=== PATIENT | female | born 2005 | race Caucasian/White ===

== ENCOUNTER → 2023-03-10 | Outpatient (CLI) | payer SELFPAY ==
[2023-03-10 13:22] VITALS: BP 122/80; PULSE 66; RESP 16; TEMP 98.3
--- NOTE | 2023-03-10 14:07 | P.HPOB ---
History of Present Illness H&P Date: 03/10/23 Chief Complaint: The patient is here for her routine gynecologic exam. This is a 17-year-old G0 with an LMP of 03/03/2023. The patient has been on oral contraceptions for 2-1/2 years. She initially started them because of menstrual cramps and heavy flow. She states they were helpful, but she seems to be having more cramps even while on Loestrin 1-20. She is requesting to try a different type of control pill. She is otherwise without complaints. She does not plan on attempting in the upcoming year. Review of Systems The patient's weight has been stable over the last year. She denies respiratory, cardiac, or G.I. problems. 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 History of Any Multi-Drug Resistant Organisms: None Reported Past Surgical History: No Surgical Hx Reported Past Psychological History: Anxiety, Depression (She denies current depression without medication.) Additional Psychological History / Comment(s): Briefly used medication for depression and anxiety around age 14. She has done well without medication recently. Smoking Status: Current some day smoker, Vaper Past Drug Use History: Marijuana Additional Drug Use History / Comment(s): Vapes marijuana. Additional History: She is single and has been with her current boyfriend since 2021. She has had 2 partners in her lifetime. 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 - Past Family History Mother Family Medical History: No Reported History Additional Family Medical History / Comment(s): Maternal grandfather had some type of cancer. Father Additional Family Medical History / Comment(s): from ALS. Paternal grandmother had diabetes. Medications and Allergies Home Medications Medication Instructions Recorded Confirmed Type norethindrone ac-eth estradioL 1 tab PO DAILY 03/10/23 03/10/23 History [Loestrin 21 1-20 Tablet] Allergies Allergy/AdvReac Type Severity Reaction Status Date / Time No Known Allergies Allergy Unverified 03/10/23 13:18 Exam Vital Signs Temp Pulse Resp BP Pulse Ox 03/10/23 13:16 98.3 F 66 16 122/80 100 Intake and Output 03/09/23 03/10/23 03/10/23 22:59 06:59 14:59 Other: Weight 77.111 kg Height 5 feet 4-1/2 inches, weight 170 pounds, BMI 28.7. This is a well-developed well-nourished white female who is alert and oriented times 3 in no acute distress. HEENT: Within normal limits. She does have a nasal piercing. NECK: Supple without mass or thyromegaly. CHEST AND LUNGS: Clear to auscultation. HEART: Regular rate and rhythm. BREASTS: Are without mass or discharge. AXILLARY EXAM: Negative for adenopathy. BACK: Negative for CVA tenderness. ABDOMEN: Soft, nontender, without palpable masses. PELVIC EXAM: Normal external genitalia. Cervix and vagina appear normal. There is a small amount of creamy slightly yellow discharge. She did have sexual intercourse yesterday. There is no cervical motion tenderness. There is no evidence of prolapse. The uterus is midposition, nongravid size and nontender. There are no palpable adnexal masses or tenderness. RECTAL EXAM: Deferred. EXTREMITIES: Nontender. IMPRESSION: 1. 17-year-old female with history of dysmenorrhea and hypermenorrhea improved with oral contraception. 2. Slight worsening of dysmenorrhea despite oral contraception. The patient is requesting a different control pill. 3. Slight vaginal discharge. Differential diagnosis will include vaginal infe ction, physiologic discharge, and post coital semen related discharge. PLAN: 1. Pap smear will be deferred until age 19. 2. Self breast awareness was discussed with the patient. We have also disc ussed symptoms associated with inflammatory breast cancer. 3. GC and chlamydia testing was obtained from the cervix. 4. Affirm vaginitis panel was obtained from the vagina. 5. We have had a long discussion regarding oral contraception including possible side effects as well as possible risks including blood clots. Blood clots could be in the form of a DVT, PE, heart attack, and stroke. She will contact complete her current pack of pills. She will start Ortho Tri-Cyclen when she was supposed to start a new pack of pills. The electronic prescription for Ortho Tri-Cyclen will be sent to [facility] pharmacy in [place]. 6. We have discussed how there are risks to vaping. There can be potential lung damage with this. She understands this. 7. STD prevention was discussed. I have stressed the importance of limiting sexual partners and she is to consider condom use for STD prevention. 8. Preconception planning was also discussed if she ever decides to try to attempt . Have stressed the importance of keeping a menstrual calendar and taking a daily multivitamin with folic acid. 9. She was advised to return in one year for her annual well woman exam.
== END ==
LOC: WWCWWP 13:06
PROVIDERS: ATTEND Obstetrics & Gynecology
DX: N94.6 Dysmenorrhea, unspecified (principal); N92.0 Excessive and frequent menstruation with regular cycle; Z98.890 Other specified postprocedural states; F17.200 Nicotine dependence, unspecified, uncomplicated

== ENCOUNTER → 2024-08-02 | Outpatient (CLI) | payer SELFPAY ==
[2024-08-02 11:28] VITALS: BP 127/84; PULSE 80; RESP 16; TEMP 98.2
--- NOTE | 2024-08-02 11:51 | P.HPOB ---
History of Present Illness H&P Date: 08/02/24 Chief Complaint: Patient is here for her routine gynecologic exam. This is a 18-year-old G0 with an LMP of 07/21/2024. Patient states she is doing well on oral contraception. She does not plan on attempting in the upcoming year. She is without gynecologic complaints. She states her menstrual periods continue to do better on oral contraception. Review of Systems The patient has gained 31 pounds over the last year. She states she tends to stress eat and has been under more stress following the loss of a relative. She denies respiratory, cardiac, or G.I. problems. 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 History of Any Multi-Drug Resistant Organisms: None Reported Past Surgical History: No Surgical Hx Reported Past Psychological History: Anxiety, Depression Additional Psychological History / Comment(s): Briefly used medication for depression and anxiety around age 14. She has done well without medication recently. Smoking Status: Former smoker (Only vapes.), Vaper (About 6000 puffs every 2 weeks) Past Drug Use History: Marijuana (No longer smokes marijuana.) Additional Drug Use History / Comment(s): Vapes marijuana. Additional History: Quit using marijuana in October 2023. - Past Family History Mother Family Medical History: No Reported History Additional Family Medical History / Comment(s): Maternal grandfather had some type of cancer. Father Additional Family Medical History / Comment(s): from ALS. Paternal grandmother had diabetes. Medications and Allergies Home Medications Medication Instructions Recorded Confirmed Type norgestimate-ethinyl estradioL 1 each PO DAILY #84 tablet 03/10/23 Rx [Tri-Sprintec Tablet] Allergies Allergy/AdvReac Type Severity Reaction Status Date / Time No Known Allergies Allergy Unverified 08/02/24 11:25 Exam Vital Signs Temp Pulse Resp BP Pulse Ox 08/02/24 11:26 98.2 F 80 16 127/84 100 Intake and Output 08/01/24 08/02/24 08/02/24 22:59 06:59 14:59 Other: Weight 91.172 kg Height 5 feet 4 inches, weight 201 pounds, BMI 34.5. This is a well-developed well-nourished white female who is alert and oriented times 3 in no acute distress. HEENT: Within normal limits. NECK: Supple without mass or thyromegaly. CHEST AND LUNGS: Clear to auscultation. HEART: Regular rate and rhythm. BREASTS: Are without mass or discharge. AXILLARY EXAM: Negative for adenopathy. BACK: Negative for CVA tenderness. ABDOMEN: Soft, nontender, without palpable masses. PELVIC EXAM: Normal external genitalia. Cervix and vagina appear normal. There is no unusual discharge. There is no evidence of prolapse. There is no cervical motion tenderness. The uterus is midposition, nongravid size and nontender. There are no palpable adnexal masses or tenderness. RECTAL EXAM: Deferred. EXTREMITIES: Nontender. IMPRESSION: 1. 26-year-old female doing well on oral contraception, with normal gynecologic exam. 2. History of dysmenorrhea and hypermenorrhea improved with oral contraception. PLAN: 1. Pap smear will be deferred until age 19. 2. GC and Chlamydia screening was obtained from the cervix. 3. She will continue to use condoms in addition to oral contraception. The electronic prescription for Tri-Sprintec will be sent to [facility] pharmacy. 4. Weight control was discussed. I have stressed the importance of good nutrition, regular meals, adequate fiber, and regular exercise. 5. STD prevention was discussed. I stressed the importance of limiting sexual partners and continuing to use condoms. 6. I recommended that she try to quit vaping. We have discussed some risks of vaping. She states she will be trying to quit in the upcoming year. 7. She was advised to return in one year for her annual well woman exam.
== END ==
LOC: WWCWWP 11:01
PROVIDERS: ATTEND Obstetrics & Gynecology
DX: Z01.419 Encounter for gynecological examination (general) (routine) without abnormal findings (principal); Z87.891 Personal history of nicotine dependence; Z87.42 Personal history of other diseases of the female genital tract

== ENCOUNTER 2025-04-18 21:44 | Emergency (ER) | payer OTHER ==
--- NOTE | 2025-04-19 00:07 | ED ---
General Adult HPI - General Chief complaint: Extremity Injury, Lower Stated complaint: R Foot Injury Time Seen by Provider: 04/18/25 22:19 Source: patient, RN notes reviewed Mode of arrival: ambulatory Limitations: no limitations - History of Present Illness Initial comments: 19-year-old female presents to the emergency department for evaluation of foot pain. Patient reports that she injured her right foot when she fell almost 2 weeks ago. She has been walking on it but it has been painful for her. She states that she thought it would get better but has not improved and she is worried that it is broken. She denies any numbness or tingling. - Related Data Previous Rx's Medication Instructions Recorded norgestimate-ethinyl estradioL 1 each PO DAILY #84 tablet 08/02/24 [Tri-Sprintec Tablet] Allergies Allergy/AdvReac Type Severity Reaction Status Date / Time No Known Allergies Allergy Verified 04/18/25 21:51 Review of Systems ROS Statement: Those systems with pertinent positive or pertinent negative responses have been documented in the HPI. ROS Other: All systems not noted in ROS Statement are negative. 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 History of Any Multi-Drug Resistant Organisms: None Reported Past Surgical History: No Surgical Hx Reported Past Psychological History: Anxiety, Depression Smoking Status: Vaper Past Alcohol Use History: Occasional Past Drug Use History: Marijuana - Past Family History Mother Family Medical History: No Reported History Additional Family Medical History / Comment(s): Maternal grandfather had some type of cancer. Father Additional Family Medical History / Comment(s): from ALS. Paternal grandmother had diabetes. General Exam Limitations: no limitations General appearance: alert, in no apparent distress Head exam: Present: atraumatic, normocephalic, normal inspection Eye exam: Present: normal appearance, PERRL, EOMI. Absent: scleral icterus, conjunctival injection, periorbital swelling ENT exam: Present: normal exam, mucous membranes moist Respiratory exam: Present: normal lung sounds bilaterally. Absent: respiratory distress, wheezes, rales, rhonchi, stridor Cardiovascular Exam: Present: regular rate, normal rhythm, normal heart sounds. Absent: systolic murmur, diastolic murmur, rubs, gallop, clicks Extremities exam: Present: normal inspection, full ROM, normal capillary refill, other (DP and PT pulses 2+, no significant swelling or erythema to the foot). Absent: tenderness, pedal edema, joint swelling, calf tenderness Neurological exam: Present: alert, oriented X3 Psychiatric exam: Present: normal affect, normal mood Skin exam: Present: warm, dry, intact, normal color. Absent: rash Course Vital Signs 04/18/25 04/18/25 04/19/25 21:51 23:16 00:41 Temperature 98.1 F 98 F Pulse Rate 113 H 70 74 Respiratory 18 18 16 Rate Blood Pressure 146/106 134/79 124/81 O2 Sat by Pulse 100 100 100 Oximetry Medical Decision Making - Medical Decision Making Was pt. sent in by a medical professional or institution (JOANN Wagner, MACHINE HEEL BUILDER, urgent care, hospital, or intermediate...) When possible be specific @ -[No] Did you speak to anyone other than the patient for history (EMS, parent, family, police, friend...)? What history was obtained from this source @ -[No] Did you review nursing and triage notes (agree or disagree)? Why? @ -[I disagree with the location of the injury, the patient is reporting right foot pain rather than left] Were old charts reviewed (outside hosp., previous admission, EMS record, old EKG, old radiological studies, urgent care reports/EKG's, intermediate records)? Report findings @ -[No old charts were reviewed] Differential Diagnosis (chest pain, altered mental status, abdominal pain women, abdominal pain men, vaginal bleeding, weakness, fever, dyspnea, syncope, headache, dizziness, GI bleed, back pain, seizure, CVA, palpatations, mental health, musculoskeletal)? @ -Differential Musculoskeletal Muscular strain, contusion, ligament sprain, fracture, arthritis, septic arthritis, bursitis, cellulitis, muscle spasm, nerve compression, DVT, arterial occlusion, herpes zoster, electrolyte abnormality, tumor.... This is not meant to be in all inclusive list EKG interpreted by me (3pts min.). @ -None X-rays interpreted by me (1pt min.). @ -X-ray of the foot revealed no acute process CT interpreted by me (1pt min.). @ -[None done] U/S interpreted by me (1pt. min.). @ -[None done] What testing was considered but not performed or refused? (CT, X-rays, U/S, labs)? Why? @ -[None] What meds were considered but not given or refused? Why? @ -[None] Did you discuss the management of the patient with other professionals (professionals i.e. , PA, MACHINE HEEL BUILDER, lab, RT, psych nurse, foster care social worker, line puller, teacher, credit products officer, rn case manager)? Give summary @ -[No] Was smoking cessation discussed for >3mins.? @ -[No] Was critical care preformed (if so, how long)? @ -[No] Were there social determinants of health that impacted care today? How? (Homelessness, low income, unemployed, alcoholism, drug addiction, transportation, low edu. Level, literacy, decrease access to med. care, [facility], rehab)? @ -[No] Was there de-escalation of care discussed even if they declined (Discuss DNR or withdrawal of care, Hospice)? DNR status @ -[No] What co-morbidities impacted this encounter? (DM, HTN, Smoking, COPD, CAD, Cancer, CVA, ARF, Chemo, Hep., AIDS, mental health diagnosis, sleep apnea, morbid obesity)? @ -[None] Was patient admitted / discharged? Hospital course, mention meds given and route, prescriptions, significant lab abnormalities, going to OR and other pertinent info. @ -Discharge. Patient presented emergency department for evaluation of right foot pain. X-rays obtained revealing no acute process. Patient was advised on findings will be discharged home. She is understanding agreeable with plan. Patient stable at time of discharge. Case discussed with Dr. Cerda Undiagnosed new problem with uncertain prognosis? @ -[No] Drug Therapy requiring intensive monitoring for toxicity (Heparin, Nitro, Insulin, Cardizem)? @ -[No] Were any procedures done? @ -[No] Diagnosis/symptom? @ -Foot pain Acute, or Chronic, or Acute on Chronic? @ -Acute Uncomplicated (without systemic symptoms) or Complicated (systemic symptoms)? @ -Uncomplicated Side effects of treatment? @ -[No] Exacerbation, Progression, or Severe Exacerbation? @ -[No] Poses a threat to life or bodily function? How? (Chest pain, USA, OR, pneumonia, PE, COPD, DKA, ARF, appy, cholecystitis, CVA, Diverticulitis, Homicidal, Suicidal, threat to staff... and all critical care pts) @ -[No] Disposition Clinical Impression: Foot sprain Disposition: HOME SELF-CARE Condition: Stable Instructions (If sedation given, give patient instructions): Foot Sprain (ED) Additional Instructions: Please follow up with your doctor. Return to the emergency department for new or worsening symptoms. Is patient prescribed a controlled substance at d/c from ED?: No Referrals: Minerva Alcantar MD [Primary Care Provider] - 1-2 days Donny Langley DO [Doctor of Osteopathic Medicine] - 1-2 days
[2025-04-19 00:42] VITALS: BP 124/81; PULSE 74; RESP 16; TEMP 98
--- NOTE | 2025-04-19 07:46 | XR ---
EXAMINATION TYPE: XR foot complete RT DATE OF EXAM: 04/18/2025 10:08 PM COMPARISON: None CLINICAL INDICATION: Female, 19 years old with history of R foot injury; PHH, pain TECHNIQUE: 3 views FINDINGS: No acute fracture, subluxation, dislocation is seen. Joint spaces are maintained. IMPRESSION: No acute osseous abnormality is seen. [facility], Workstation: [facility], 04/19/2025 7:44 AM
== END 2025-04-19 00:42 | disposition home or self-care (01) ==
LOC: EC 21:44
DX: S93.609A Unspecified sprain of unspecified foot, initial encounter (principal); F17.290 Nicotine dependence, other tobacco product, uncomplicated; Y93.01 Activity, walking, marching and hiking
CPT/HCPCS: 99283